=== PATIENT | female | born 2000 | race American Indian/Alaskan Native ===

== ENCOUNTER 2019-12-01 00:22 | Emergency (ER) | payer BC ==
[2019-12-01 00:27] VITALS: BP 140/82
--- NOTE | 2019-12-01 01:07 | Emergency Department Report ---
Abscess Boil HPI - HPI Chief Complaint: Skin/Abscess/Foreign Body Stated Complaint: LUMP LEFT BREAST Time Seen by Provider: 12/01/19 00:53 Duration: 2 Days Severity: Moderate History: Yes Pain, No Fever, No Purulent Drainage, No Numbness, No Foreign Body, No Previous History, No Insect Bite HPI: 19-year-old -[place] female patient presents with complaints of le ft breast abscess for the past 2 days. She states history of recurrent abscesses under her arms. She denies any fever or drainage. Home Medications: Previous Rx's Medication Instructions Recorded Last Taken Type Clindamycin [Clindamycin CAP] 300 mg PO Q6H 10 Days #40 capsule 12/01/19 Unknown Rx Ibuprofen [Motrin 800 MG tab] 800 mg PO Q8HR PRN #21 tablet 12/01/19 Unknown Rx Mupirocin [Bactroban 2% OINT] 1 applic TP TID 10 Days #1 tube 12/01/19 Unknown Rx Allergies/Adverse Reactions: Allergies Allergy/AdvReac Type Severity Reaction Status Date / Time No Known Allergies Allergy Verified 12/01/19 00:24 ED Review of Systems ROS: Stated complaint: LUMP LEFT BREAST Other details as noted in HPI Constitutional: denies: chills, diaphoresis, fever, malaise, weakness Skin: lesions. denies: change in color ED Past Medical Hx - Past Medical History Previous Medical History?: No - Surgical History Past Surgical History?: No - Social History Smoking Status: Never Smoker Substance Use Type: None - Medications Home Medications: Home Medications Medication Instructions Recorded Confirmed Last Taken Type Clindamycin [Clindamycin CAP] 300 mg PO Q6H 10 Days #40 capsule 12/01/19 Unknown Rx Ibuprofen [Motrin 800 MG tab] 800 mg PO Q8HR PRN #21 tablet 12/01/19 Unknown Rx Mupirocin [Bactroban 2% OINT] 1 applic TP TID 10 Days #1 tube 12/01/19 Unknown Rx ED Abscess Boil Physical Exam - Exam General: Vital signs noted. No distress. Alert and acting appropriately. Front/Back of Body, Lg (Color): 1 - Small round indurated area noted without fluctuance or overlying erythema. There is tenderness to palpation. No active drainage noted. Size: 3 cm Exam: Yes Tenderness, No Fluctuance, No Surrounding Cellulites/Erythema, No Lymphangitis, No Crepitation ED Course Vital Signs 12/01/19 00:26 Temperature 98.1 F Pulse Rate 84 Respiratory 16 Rate Blood Pressure 140/82 O2 Sat by Pulse 97 Oximetry Critical care attestation.: If time is entered above; I have spent that time in minutes in the direct care of this critically ill patient, excluding procedure time. ED Medical Decision Making - Medical Decision Making Patient here with left breast abscess. The abscess is nonfluctuant at this time. Patient states because she developed keloid scars, she does not wish to have any incision and drainage performed. Her vitals are normal. She is well- appearing and stable for discharge home. Prescription for clindamycin given. Recommend follow-up with dermatology concerning possible diagnosis of hidradenitis suppuratiiva. Discussed wound care and importance of warm compresses with patient. Discussed strict return precautions in great detail with patient who verbalizes understanding. ED Disposition Clinical Impression: Left breast abscess Disposition: DC-01 TO HOME OR SELFCARE Is pt being admited?: No Condition: Stable Instructions: Abscess (ED) Prescriptions: Mupirocin [Bactroban 2% OINT] 1 applic TP TID 10 Days #1 tube Clindamycin [Clindamycin CAP] 300 mg PO Q6H 10 Days #40 capsule Ibuprofen [Motrin 800 MG tab] 800 mg PO Q8HR PRN #21 tablet PRN Reason: pain
== END 2019-12-01 01:14 | disposition home or self-care (01) ==
LOC: ED 00:22
DX: N61.1 Abscess of the breast and nipple (principal)
CPT/HCPCS: 99282

== ENCOUNTER 2019-12-14 10:19 | Emergency (ER) | payer BC ==
[2019-12-14 10:34] VITALS: BP 128/85
--- NOTE | 2019-12-14 11:26 | Emergency Department Report ---
- General Chief complaint: Skin/Abscess/Foreign Body Stated complaint: ABCESS UNDER RIGHT ARM Time Seen by Provider: 12/14/19 11:12 Source: patient Mode of arrival: Ambulatory Limitations: No Limitations - History of Present Illness Initial comments: Patient is a 19-year-old female presents emergency room with complaints of an abscess of the right axilla that began 2 weeks ago. She states that today it opened and drained on its own. She states that she has had these multiple times in the past and has had I&D's performed which caused keloids. She was seen recently for the same thing on 12/01/2019 and did not get the antibiotics filled. She denies any fever, vomiting, chills. She denies any other past medical history or allergies to medications. - Related Data Previous Rx's Medication Instructions Recorded Last Taken Type Clindamycin [Clindamycin CAP] 300 mg PO Q6H 10 Days #40 capsule 12/01/19 Unknown Rx Ibuprofen [Motrin 800 MG tab] 800 mg PO Q8HR PRN #21 tablet 12/01/19 Unknown Rx Mupirocin [Bactroban 2% OINT] 1 applic TP TID 10 Days #1 tube 12/01/19 Unknown Rx Sulfamethoxazole/Trimethoprim 1 each PO BID 7 Days #14 tablet 12/14/19 Unknown Rx [Bactrim DS TAB] Allergies Allergy/AdvReac Type Severity Reaction Status Date / Time No Known Allergies Allergy Verified 12/01/19 00:24 Abscess Boil HPI - HPI Chief Complaint: Skin/Abscess/Foreign Body Stated Complaint: ABCESS UNDER RIGHT ARM Time Seen by Provider: 12/14/19 11:12 Home Medications: Previous Rx's Medication Instructions Recorded Last Taken Type Clindamycin [Clindamycin CAP] 300 mg PO Q6H 10 Days #40 capsule 12/01/19 Unknown Rx Ibuprofen [Motrin 800 MG tab] 800 mg PO Q8HR PRN #21 tablet 12/01/19 Unknown Rx Mupirocin [Bactroban 2% OINT] 1 applic TP TID 10 Days #1 tube 12/01/19 Unknown Rx Sulfamethoxazole/Trimethoprim 1 each PO BID 7 Days #14 tablet 12/14/19 Unknown Rx [Bactrim DS TAB] Allergies/Adverse Reactions: Allergies Allergy/AdvReac Type Severity Reaction Status Date / Time No Known Allergies Allergy Verified 12/01/19 00:24 ED Review of Systems ROS: Stated complaint: ABCESS UNDER RIGHT ARM Other details as noted in HPI Comment: All other systems reviewed and negative ED Past Medical Hx - Past Medical History Previous Medical History?: Yes Additional medical history: Vaginal dleivery x 1 - Surgical History Past Surgical History?: No - Social History Smoking Status: Never Smoker Substance Use Type: None - Medications Home Medications: Home Medications Medication Instructions Recorded Confirmed Last Taken Type Clindamycin [Clindamycin CAP] 300 mg PO Q6H 10 Days #40 capsule 12/01/19 Unknown Rx Ibuprofen [Motrin 800 MG tab] 800 mg PO Q8HR PRN #21 tablet 12/01/19 Unknown Rx Mupirocin [Bactroban 2% OINT] 1 applic TP TID 10 Days #1 tube 12/01/19 Unknown Rx Sulfamethoxazole/Trimethoprim 1 each PO BID 7 Days #14 tablet 12/14/19 Unknown Rx [Bactrim DS TAB] ED Physical Exam - General Limitations: No Limitations General appearance: alert, in no apparent distress - Head Head exam: Present: atraumatic, normocephalic - Eye Eye exam: Present: normal appearance - ENT ENT exam: Present: mucous membranes moist - Neurological Exam Neurological exam: Present: alert, oriented X3 - Psychiatric Psychiatric exam: Present: normal affect, normal mood - Skin Skin exam: Present: warm, dry, other (keloid present to the medial axilla region, there is mild induration, no central fluctuance, there is small 0.5 cm opening present, no active drainage, no surrouding cellulitis, no necrosis) ED Course Vital Signs 12/14/19 10:31 Temperature 98.2 F Pulse Rate 71 Respiratory 20 Rate Blood Pressure 128/85 O2 Sat by Pulse 97 Oximetry ED Medical Decision Making - Medical Decision Making Patient is a 19-year-old female presents emergency room with complaints of an abscess of the right axilla that began 2 weeks ago. She states that today it opened and drained on its own. She states that she has had these multiple times in the past and has had I&D's performed which caused keloids. She was seen recently for the same thing on 12/01/2019 and did not get the antibiotics filled. She denies any fever, vomiting, chills. She denies any other past medical history or allergies to medications. Vitals are normal. On exam: keloid present to the medial axilla region, there is mild induration, no central fluctuance, there is small 0.5 cm opening present, no active drainage, no surrouding cellulitis, no necrosis. Examination consistent with keloid and early abscess formation, it is already open and draining, no need for I&D at this time, will place patient on antibiotics and discussed hygiene with patient. Patient given prescription for Bactrim. advised pt Please keep area clean, dry, covered. May wash with soap and water couple times a day and immediately dry. No hot tub, no pool, no soaking in water. Do not use peroxide or alcohol. Please take medication as prescribed to completion. Follow-up with a primary care doctor for reexamination. Return to the emergency room immediately for any new or worsening symptoms Critical care attestation.: If time is entered above; I have spent that time in minutes in the direct care of this critically ill patient, excluding procedure time. ED Disposition Clinical Impression: Axillary abscess Disposition: - TO HOME OR SELFCARE Is pt being admited?: No Does the pt Need Aspirin: No Condition: Stable Instructions: Abscess (ED) Additional Instructions: Please keep area clean, dry, covered. May wash with soap and water couple times a day and immediately dry. No hot tub, no pool, no soaking in water. Do not use peroxide or alcohol. Please take medication as prescribed to completion. Follow-up with a primary care doctor for reexamination. Return to the emergency room immediately for any new or worsening symptoms Prescriptions: Sulfamethoxazole/Trimethoprim [Bactrim DS TAB] 1 each PO BID 7 Days #14 tablet Referrals: REDDY COPELAND MD [Staff Physician] - 3-5 Days [facility] [Provider Group] - 3-5 Days Time of Disposition: 11:25 Print Language: GUAMANIAN
== END 2019-12-14 11:34 | disposition home or self-care (01) ==
LOC: ED 10:19
DX: L02.411 Cutaneous abscess of right axilla (principal); Z79.899 Other long term (current) drug therapy
CPT/HCPCS: 99282